=== PATIENT | male | born 1950 | race Caucasian/White ===

== ENCOUNTER → 2016-07-21 | Outpatient (CLI) | payer BC, OTHER ==
--- NOTE | 2016-07-22 01:38 | REP ---
Clinical: Chronic Obstructive Pulmonary Disease. Comparison: 01/18/2015. Technique: PA and lateral. Findings: The mediastinum and cardiac silhouette are normal. The lung hathaway are clear and without acute consolidation, effusion, or pneumothorax. The skeletal structures are intact and normal. Impression: 1. No acute cardiopulmonary process. Signed by Robel Barnett MD 07/22/2016 01:29 A
== END ==
LOC: M SMT 09:52
PROVIDERS: ATTEND Internal Medicine Pulmonary Disease
DX: J44.9 Chronic obstructive pulmonary disease, unspecified (principal)